=== PATIENT | male | born 1995 | race African-American/Black ===

== ENCOUNTER 2017-04-20 16:40 | Emergency (ER) | payer OTHER ==
[~2017-04-20] VITALS: Ht 167.6 cm; Wt 81.7 kg
[~2017-04-20 16:40] MED LIST: AMNESTEEM40 MG PO; BACTRIM DS TAB1 EACH PO; FLEXERIL PO; HYDROCODON-ACE1 EAC7 PO; IBUPROFEN 800800 M1 PO; KEFLEX500 MG PO; NOHOMEMEDICATIONS; NORCO 5-325 TA1 EACH PO
[2017-04-20] MEDS ORDERED: IBUPROFEN 800800 M1 PO (18:26)
[2017-04-20] MEDS ORDERED: FLEXERIL PO (18:26)
[2017-04-20 18:40] VITALS: BP 127/76
== END 2017-04-20 18:42 | disposition home or self-care (01) ==
LOC: M.ERS 16:40
DX: S29.019A Strain of muscle and tendon of unspecified wall of thorax, initial encounter (principal); S16.1XXA Strain of muscle, fascia and tendon at neck level, initial encounter; S39.012A Strain of muscle, fascia and tendon of lower back, initial encounter; V49.49XA Driver injured in collision with other motor vehicles in traffic accident, initial encounter; Y93.89 Activity, other specified; Y92.89 Other specified places as the place of occurrence of the external cause; Y99.8 Other external cause status

== ENCOUNTER 2017-12-23 08:38 | Emergency (ER) | payer OTHER ==
[~2017-12-23] VITALS: Ht 175.3 cm; Wt 81.7 kg
[2017-12-23 08:45] VITALS: BP 126/69
[2017-12-23] MEDS ORDERED: TRIAMCINOLONE A15 G1 TOP (08:57)
== END 2017-12-23 09:02 | disposition home or self-care (01) ==
LOC: M.ERS 08:38
DX: L25.9 Unspecified contact dermatitis, unspecified cause (principal)

== ENCOUNTER 2018-03-25 23:13 | Emergency (ER) | payer OTHER ==
[~2018-03-25] VITALS: Ht 172.7 cm; Wt 81.7 kg
[~2018-03-25 23:13] MED LIST changes: +TRIAMCINOLONE A15 G1 TOP
[2018-03-25] MEDS ORDERED: NOHOMEMEDICATIONS (23:22)
[2018-03-25 23:46] LABS: ABSOLUTE BASOPHILS 0.1 thou/uL (0.0-0.2); ABSOLUTE EOSINOPHILS 0.2 thou/uL (0.0-0.7); ABSOLUTE LYMPHOCYTES 3.5 thou/uL (0.8-5.3); ABSOLUTE MONOCYTES 1.6 thou/uL (0.0-1.2); ABSOLUTE NEUTROPHILS 6.1 thou/uL (1.6-8.1); BASOPHILS 0.9 %; EOSINOPHILS 1.8 %; HEMATOCRIT 40.8 % (42.0-52.0); HEMOGLOBIN 13.4 gm/dL (14.0-18.0); LYMPHOCYTES 30.6 %; MCH 27.6 pg (26.0-34.0); MCHC 32.9 g/dL (28.0-37.0); MONOCYTES 13.8 %; MPV 9.2 fl. (7.2-11.1); NUCLEATED RBCS 0 /100WBC; PLATELET COUNT* 363 thou/uL (150-400); POLYS 52.9 %; RBC 4.85 mil/uL (4.50-6.00); RDW-CV 13.3 % (10.5-14.5); WBC 11.5 thou/uL (4.0-11.0)
[2018-03-25 23:50] LABS: CALCIUM 8.6 mg/dL (8.5-10.1); CREATININE 1.2 mg/dL (0.6-1.3); POTASSIUM 3.3 mmol/L (3.5-5.1)
[2018-03-25 23:55] LABS: ALBUMIN 3.4 g/dL (3.4-5.0); TOTAL BILIRUBIN 0.1 mg/dL (<0.1-1.0); TOTAL PROTEIN 8.1 g/dL (6.4-8.2)
[2018-03-26 00:19] LABS: URINE BILIRUBIN NEGATIVE (Negative); URINE BLOOD NEGATIVE (Negative); URINE CLARITY CLEAR; URINE COLOR YELLOW; URINE GLUCOSE-RANDOM NEGATIVE (Negative); URINE KETONES NEGATIVE (Negative); URINE LEUKOCYTES-REFLEX NEGATIVE (Negative); URINE NITRITE-REFLEX NEGATIVE (Negative); URINE PROTEIN TRACE (Negative); URINE SPECIFIC GRAVITY >= 1.030 (1.005-1.030); URINE UROBILINOGEN 0.2 E.U./dl (0.2-1.0)
[2018-03-26 00:27] LABS: AMP/METHAMP Negative (Negative); BARBITURATES Negative (Negative); BENZODIAZEPINES Negative (Negative); COCAINE Negative (Negative); METHADONE Negative (Negative); OPIATES POSITIVE (Negative); PCP Negative (Negative); THC Negative (Negative)
[2018-03-26 00:57] VITALS: BP 119/71
--- NOTE | 2018-03-26 10:34 | EKG ---
[place] [address] ELECTROCARDIOGRAM REPORT Name: GREG HANNA V Room: 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 03/26/18 1034 2318 2318 Alfa Heredia MD, FAC /EPI
== END 2018-03-26 00:57 | disposition home or self-care (01) ==
LOC: M.ERS 23:13
PROVIDERS: Personal Emergency Response Attendant
DX: R00.2 Palpitations (principal); Z79.899 Other long term (current) drug therapy

== ENCOUNTER 2019-10-12 09:40 | Emergency (ER) | payer BC ==
[~2019-10-12] VITALS: Ht 182.9 cm; Wt 81.7 kg
[~2019-10-12 09:40] MED LIST changes: +ASPERCREME1 EACH TRANSDERM; +CYCLOBENZAPRINE5 MG PO; +MOBIC7.5 MG PO
[2019-10-12 10:55] VITALS: BP 135/72
== END 2019-10-12 10:56 | disposition home or self-care (01) ==
LOC: M.ERS 09:40
DX: B34.9 Viral infection, unspecified (principal); Z20.828 Contact with and (suspected) exposure to other viral communicable diseases

== ENCOUNTER 2020-03-18 08:03 | Emergency (ER) | payer OTHER ==
[~2020-03-18] VITALS: Ht 182.9 cm; Wt 81.7 kg
[~2020-03-18 08:03] MED LIST changes: +CATAPRES0.1 MG PO
[2020-03-18 09:04] LABS: HEMATOCRIT 44.4 % (42.0-52.0); HEMOGLOBIN 14.2 gm/dL (14.0-18.0); MCH 27.6 pg (26.0-34.0); MCV 86.3 fL (80.0-100.0); RBC 5.14 mil/uL (4.50-6.00); RDW-CV 13.7 % (10.5-14.5); WBC 19.6 thou/uL (4.0-11.0)
[2020-03-18 09:08] LABS: CALCIUM 8.3 mg/dL (8.5-10.1); CREATININE 1.8 mg/dL (0.6-1.3); POTASSIUM 5.4 mmol/L (3.5-5.1)
[2020-03-18 09:12] LABS: ALBUMIN 3.9 g/dL (3.4-5.0); TOTAL BILIRUBIN 0.3 mg/dL (<0.1-1.0); TOTAL PROTEIN 8.6 g/dL (6.4-8.2)
[2020-03-18 09:22] LABS: ACETAMINOPHEN < 2 ug/mL (10-30); ALCOHOL < 10 mg/dL (<10); SALICYLATE < 2.8 mg/dL (2.8-20.0)
[2020-03-18 11:34] LABS: URINE BILIRUBIN NEGATIVE (Negative); URINE BLOOD NEGATIVE (Negative); URINE CLARITY CLEAR; URINE COLOR YELLOW; URINE GLUCOSE-RANDOM NEGATIVE (Negative); URINE KETONES NEGATIVE (Negative); URINE LEUKOCYTES NEGATIVE (Negative); URINE NITRITE NEGATIVE (Negative); URINE PROTEIN NEGATIVE (Negative); URINE SPECIFIC GRAVITY 1.025 (1.005-1.030); URINE UROBILINOGEN 0.2 E.U./dl (0.2-1.0)
[2020-03-18 11:51] LABS: AMP/METHAMP Negative (Negative); BARBITURATES Negative (Negative); BENZODIAZEPINES Negative (Negative); COCAINE Negative (Negative); METHADONE Negative (Negative); OPIATES Negative (Negative); PCP Negative (Negative); THC Negative (Negative)
[2020-03-18 11:54] VITALS: BP 132/63
--- NOTE | 2020-03-19 10:16 | EKG ---
[place] [address] ELECTROCARDIOGRAM REPORT Name: GREG HANNA V Room: [facility]#: [id number] Admission: 03/18/20 Attend Phys: Discharge: 03/18/20 Date of : [birth year] Date of Service: 03/18/20815 Report #: [id number] THIS REPORT FOR: //name// 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: : 1995 Requested By: Radha De La O Order Number: [id number] MD: Alfa Heredia Measurements Intervals [place] Rate: 88 P: 18 GA: 160 QRS: 31 QRSD: 87 T: 0 QT: 333 QTc: 403 Interpretive Statements Sinus rhythm Minimal ST depression, inferior leads Borderline ST elevation, lateral leads Baseline wander in lead(s) V2 Compared to ECG 03/25/2018 23:18:33 no change Electronically Signed On 03-19-2020 10:16:12 PAINT STRIPPER by Alfa Heredia [email or web address] <ELECTRONICALLY SIGNED> By: Alfa Heredia MD, FAC 03/19/20 1016 5 5 Alfa Heredia MD, [facility] /EPI
== END 2020-03-18 11:54 | disposition home or self-care (01) ==
LOC: M.ERS 08:03
PROVIDERS: Personal Emergency Response Attendant
DX: T40.2X1A Poisoning by other opioids, accidental (unintentional), initial encounter (principal); R11.2 Nausea with vomiting, unspecified; Z79.899 Other long term (current) drug therapy; Y92.89 Other specified places as the place of occurrence of the external cause

== ENCOUNTER → 2020-07-07 | Outpatient (CLI) | payer BC ==
[2020-07-07 17:27] LABS: ABSOLUTE BASOPHILS 0.1 thou/uL (0.0-0.2); ABSOLUTE EOSINOPHILS 0.2 thou/uL (0.0-0.7); ABSOLUTE LYMPHOCYTES 2.9 thou/uL (0.8-5.3); ABSOLUTE MONOCYTES 0.8 thou/uL (0.0-1.2); ABSOLUTE NEUTROPHILS 3.1 thou/uL (1.6-8.1); BASOPHILS 1.1 %; EOSINOPHILS 2.6 %; HEMATOCRIT 46.3 % (42.0-52.0); LYMPHOCYTES 41.7 %; MCH 28.2 pg (26.0-34.0); MCHC 32.5 g/dL (28.0-37.0); MCV 86.7 fL (80.0-100.0); MONOCYTES 10.9 %; MPV 8.6 fl. (7.2-11.1); NUCLEATED RBCS 0 /100WBC; PLATELET COUNT* 289 thou/uL (150-400); POLYS 43.7 %; RBC 5.34 mil/uL (4.50-6.00); RDW-CV 13.6 % (10.5-14.5)
[2020-07-07 17:39] LABS: ALBUMIN 3.9 g/dL (3.4-5.0); CREATININE 1.1 mg/dL (0.6-1.3); POTASSIUM 4.3 mmol/L (3.5-5.1); TOTAL BILIRUBIN 0.3 mg/dL (<0.1-1.0); TOTAL PROTEIN 8.3 g/dL (6.4-8.2)
[2020-07-08 03:06] LABS: HEPATITIS B SURFACE AG Negative (Negative)
== END ==
LOC: M.LAB 16:57
PROVIDERS: ATTEND Physician Assistant
DX: L73.2 Hidradenitis suppurativa (principal); Z79.899 Other long term (current) drug therapy

== ENCOUNTER 2020-11-09 15:31 | Emergency (ER) | payer BC ==
[~2020-11-09] VITALS: Ht 182.9 cm; Wt 81.7 kg
[2020-11-09] MEDS ORDERED: LOPERAMIDE 2 MG2 M1 PO (16:25)
[2020-11-09] MEDS ORDERED: TESSALON PERLE100 MG PO (16:25)
[2020-11-09] MEDS ORDERED: ONDANSETRON HCL4 M2 PO (16:25)
[2020-11-09 16:38] VITALS: BP 115/75
== END 2020-11-09 16:38 | disposition home or self-care (01) ==
LOC: M.ERS 15:31
DX: U07.1 COVID-19 (principal); F12.90 Cannabis use, unspecified, uncomplicated

== ENCOUNTER 2020-11-13 14:12 | Emergency (ER) | payer BC ==
[~2020-11-13] VITALS: Ht 182.9 cm; Wt 81.7 kg
[~2020-11-13 14:12] MED LIST changes: +LOPERAMIDE 2 MG2 M1 PO; +ONDANSETRON HCL4 M2 PO; +TESSALON PERLE100 MG PO
[2020-11-13] MEDS ORDERED: DEXAMETHASONE 44 M1 PO (16:29)
[2020-11-13] MEDS ORDERED: VENTOLIN HFA 1818 GM INH (16:29)
[2020-11-13] MEDS ORDERED: ZPAK PO (16:29)
[2020-11-13] MEDS ORDERED: ACETAMINOP-CODEI5 ML PO (16:29)
[2020-11-13 16:34] VITALS: BP 118/68
== END 2020-11-13 16:35 | disposition home or self-care (01) ==
LOC: M.ERS 14:12
DX: U07.1 COVID-19 (principal)